=== PATIENT | female | born 2000 | race Two or more races ===

== ENCOUNTER 2024-11-15 03:04 | Emergency (ER) | payer MEDICAID, SELFPAY ==
[2024-11-15 03:06] VITALS: BMI 37.2
--- NOTE | 2024-11-15 03:40 | EDNOTE_ITS ---
<Statement entered by Paula Ocampo MD - 11/15/24 04:03> As co-signing physician, I was present and available for consult prn. I concur with the plan and care as documented by the midlevel provider. Upper Respiratory Inf. RME/HPI General Chief Complaint: Dental/Oral/Throat Stated Complaint: FEVER, THROAT PAIN, PB. EAR PAIN Time Seen by Provider: 11/15/24 03:40 Arrival date/time: 11/15/24 03:04 24F with no significant PMH presents to ED with 2 days of cough, fevers/chills, sore throat, and bilateral ear pain. Limitations: no limitations Related Data Previous Rx's ?Medication ?Instructions ?Recorded ibuprofen 800 mg tablet 800 mg PO TID PRN pain #30 t abs 03/04/24 ondansetron 4 mg disintegrating 4 mg PO Q8H PRN nausea and 03/04/24 tablet vomiting #10 tabs Allergies Allergy/AdvReac Type Severity Reaction Status Date / Time No Known Allergies Allergy Verified 11/15/24 03:05 Review of Systems Review of Systems Systems Reviewed: All systems reviewed, normal except as documented Constitutional Constitutional: Reports system reviewed and no additional complaints, except as documented, Reports as per HPI, Reports chills, Reports fever(s) and Denies headache(s) ENT Ears, Nose, Mouth, and Throat: Reports as per HPI, Denies disequilibrium, Reports otalgia, Denies headache(s) and Reports sore throat Cardiovascular Cardiovascular: Reports system reviewed and no additional complaints, except as documented, Denies chest pain and Denies dyspnea Respiratory Respiratory: Reports system reviewed and no additional complaints, except as documented, Reports as per HPI, Reports cough and Denies dyspnea Gastrointestinal Gastrointestinal: Reports system reviewed and no additional complaints, except as documented, Denies abdominal pain, Denies nausea and Denies vomiting Neurologic Neurologic: Reports system reviewed and no additional complaints, except as documented, Denies confusion, Denies disequilibrium and Denies headache(s) Psychiatric Psychiatric: Denies confusion Past Medical History Past Medical History NEUROLOGIC: Negative Neurological Disorders CARDIAC: Negative Cardiac Disorders or Congestive Heart Failure RESPIRATORY: Negative Chronic Obstructive Pulmonary Disease (COPD) or Asthma GASTROINTESTINAL: Negative Gastrointestinal Disorders GENITOURINARY: Negative Genitourinary Disorders or Renal Disease MUSCULOSKELETAL: Negative Musculoskeletal Disorders ENDOCRINE: Negative Endocrine Disorders, Diabetes Mellitus Type 1 or Diabetes Mellitus Type 2 HEMATOLOGIC: Negative Blood Disorders or Sickle Cell Disease Surgical History SURGICAL: Negative Endocrine Surgery Social History SMOKING STATUS: Never smoker SUBSTANCE USE: marijuana ED Exam General Limitations: Present no limitations General appearance: Present alert and in no apparent distress Head Head exam: Present atraumatic Eye Eye exam: Present normal appearance, PERRL and EOMI ENT ENT exam: Present normal exam, normal oropharynx and mucous membranes moist Neck Neck exam: Present normal inspection, full ROM and trachea midline Chest Chest inspection: Present normal inspection and symmetric chest wall rise Respiratory Respiratory exam: Present normal lung sounds bilaterally Cardiovascular Cardiovascular exam: Present regular rate, normal rhythm and normal heart sounds Abdominal Exam Abdominal exam: Present soft and normal bowel sounds Extremities Exam Extremities exam: Present normal inspection and full ROM Back Exam Back exam: Present normal inspection and full ROM Neurological Exam Neurological exam: Present alert, oriented X3 and CN II-XII intact Psychiatric Psychiatric exam: Present normal affect and normal mood Skin Skin exam: Present warm, dry, intact and normal color Course Quality Measures none Orders Category Date Time Status Bedside Influenza A&B Antigen Test NOW Care 11/15/24 03:47 Active Vital Signs Vital signs: Vital Signs Temperature 99.8 F 11/15/24 03:44 Pulse Rate 111 H 11/15/24 03:44 Respiratory Rate 16 11/15/24 03:44 Blood Pressure 124/84 11/15/24 03:44 Pulse Oximetry (%) 97 11/15/24 03:44 Oxygen Delivery Method Room Air 11/15/24 03:44 O2 at 97% on RA and WNLs Upper Respiratory Infection MDM Narrative MDM Narrative:: 24F with no significant PMH presents to ED with 2 days of cough, fevers/chills, sore throat, and bilateral ear pain. Physical exam reveals clear ENT and lungs. Patient is afebrile, calm, and alert. Flu A+. Patient data External records reviewed:: [facility] previous records Clinical information provided by:: patient Social determinants that could affect healthcare access:: none Patient has the following chronic illnesses:: none How is presenting disease/condition affected by chronic disease/condition?: no chronic disease Evaluation data The following diagnostics were reviewed and interpreted by me:: lab results Lab and/or radiology exams considered but not ordered:: ordered Interpretation Summary: above Medications / Prescriptions Medications or Prescriptions considered but not ordered:: not ordered Medication administrations:: n/a Consultations Consultation(s) initiated? (list below): No Diagnosis Upper Respiratory Differential Diagnosis: upper respiratory infection, croup, otitis media, sinusitis, viral infection, bronchitis, influenza and pharyngitis Most likely diagnosis given after review of the tests above:: flu A Admission Indicated Admission indicated?: not indicated Admission Request Was there a request for admission?: No Disposition Plan Disposition Plan: Discharge Discharge Attestation Discharge Attestation: The patient and all family members were given an opportunity to ask questions and understood the discharge instructions. Discharge instructions specifically effects, indications for sooner follow up or return to the emergency department, and the expected course of current diagnosis. Patient condition: Stable Discharge Plan Plan Patient Disposition: HOME (Self Care) Disposition Comment: Stable Prescriptions/Referrals Prescriptions/Med Rec: No Action ibuprofen 800 mg tablet 800 mg PO TID PRN (Reason: pain) Qty: 30 0RF ondansetron 4 mg tablet,disintegrating 4 mg PO Q8H PRN (Reason: nausea and vomiting) Qty: 10 0RF Referrals: No Primary/Family,Physician [Primary Care Provider] - In 1 week Problem List Clinical Impression: Influenza A Patient/Caregiver Discharge Instructions Education Materials: ED Influenza (Adult) Additional Instructions: Please follow-up with PCP within 24-48 hours and return immediately if symptoms worsen. Ibuprofen/Tylenol can be used simultaneously for greater fever/pain control. Benadryl is good for cough, congestion, and sleep. Print Language: [place] Stand Alone Forms: Patient Portal Info Letter ROSEMARY/ARLETTE Supervising Physician ROSEMARY/ARLETTE Supervising Physician: Dr. Ocampo
[2024-11-15 03:44] VITALS: BP 124/84; PULSE 111; RESP 16; TEMP 37.7; O2SAT 97
[2024-11-15] MEDS: IBUPROFEN TAB 400 MG TABLET 800 MG PO (04:01)
== END 2024-11-15 04:08 | disposition home or self-care (01) ==
PROVIDERS: Emergency Provider Emergency Medicine; PCP Family Medicine
DX: J10.1 Influenza due to other identified influenza virus with other respiratory manifestations (principal)
CPT/HCPCS: 87400; 99283; A9270

== ENCOUNTER 2025-05-12 07:25 | Day surgery (SDC) | payer MEDICAID, SELFPAY ==
[2025-05-11 14:26] VITALS: BMI 37.8
--- NOTE | 2025-05-11 14:46 | EKG_ITS ---
[facility] Test Date: 2025-05-11 Pat Name: KORINA SANTOYO Department: Room: - Gender: Female Policy Services Representative: ERINN : [id number] Requested By: Kishor Monteiro Order Number: [id number] Reading MD: Kishor Monteiro Measurements Intervals [place] Rate: 62 P: 51 DC: 121 QRS: -15 QRSD: 91 T: 26 QT: 374 QTc: 383 Interpretive Statements SINUS RHYTHM POSSIBLE ANTERIOR MYOCARDIAL INFARCTION , PROBABLY OLD [30 ms Q WAVE IN V3/V4, OR R < 0.2 mV IN V4] No previous ECG available for comparison /store/S0/[id number].pdf
[2025-05-11 15:10] LABS: Collection Type, Urine Clean Catch
[2025-05-11 15:41] LABS: Basophils # (Auto) 0.0 Thou/mm3 (0.0-0.2); Basophils % (Auto) 1 % (0-2.5); Eosinophils # (Auto) 0.1 Thou/mm3 (0.0-0.5); Eosinophils % (Auto) 2 % (0-10); Hematocrit 39.4 % (36.0-46.0); Hemoglobin 13.1 g/dL (12.0-16.0); Immature Granulocytes Auto 0.02 Thou/mm3 (0.00-0.00); Lymphocytes # (Auto) 2.4 Thou/mm3 (1.0-4.8); Lymphocytes % (Auto) 36 % (10-50); Mean Corpuscular HGB Conc 33.2 g/dl (31.0-37.0); Mean Corpuscular Hemoglobin 28.2 pg (25.0-35.0); Mean Corpuscular Volume 85 fL (80-100); Monocytes # (Auto) 0.4 Thou/mm3 (0.0-0.8); Monocytes % (Auto) 6 % (0-12); Neutrophils # (Auto) 3.7 Thou/mm3 (1.8-7.7); Neutrophils % (Auto) 55 % (37-80); Nucleated Red Blood Cell # 0.00 Thou/mm3 (0.00-0.00); Nucleated Red Blood Cell % 0 /100 WBC (0); Platelet Count 266 Thou/mm3 (140-440); RDW Standard Deviation 37.9 fL (36.4-46.3); Red Blood Count 4.64 Miln/mm3 (4.00-5.20); White Blood Count 6.7 Thou/mm3 (3.6-11.0)
[2025-05-11 15:49] LABS: Alanine Aminotransferase 41 U/L (10-49); Albumin, Serum 4.7 gm/dL (3.5-5.0); Albumin/Globulin Ratio 2.1 (1.2-2.2); Alkaline Phosphatase 61 U/L (46-116); Anion Gap 9 (7-16); Aspartate Amino Transferase 29 U/L (0-34); BUN/Creatinine Ratio 17 Ratio (12-20); Bilirubin,Total 0.5 mg/dL (0.3-1.2); Blood Urea Nitrogen 10 mg/dL (9-23); Calcium 10.3 mg/dL (8.3-10.6); Calcium (Corrected) 10.3 mg/dL (8.5-10.1); Carbon Dioxide 27.9 mMol/L (20.0-31.0); Chloride 104 mMol/L (98-107); Creatinine (Component) 0.6 mg/dL (0.6-1.3); Estimated Creatinine Clearance 164.6 mL/min (>60); Globulin 2.2 gm/dL (2.3-3.5); Glucose 83 mg/dL (74-106); Osmolality,Calculated 279 (275-295); Potassium 3.8 mMol/L (3.4-5.1); Sodium 141 mMol/L (136-145); Total Protein 6.9 gm/dL (5.7-8.2); eGFR > 60 See Note
[2025-05-11 15:50] LABS: HCG Qualitative,Urine Negative
[2025-05-11 15:50] LABS: Partial Thromboplastin Time 26.9 Seconds (22.0-36.0)
[2025-05-11 18:34] LABS: Bilirubin,Urine Negative (Negative); Blood,Urine Negative (Negative); Clarity,Urine Clear (Clear/Hazy); Color,Urine Yellow (Lt Yel-Yel); Glucose, Urine Negative (Negative); Ketones,Urine Negative (Negative); Leukocyte Esterase,Urine Negative (Negative); Nitrite,Urine Negative (Negative); PH,Urine 7.5 (5.0-7.0); Protein,Urine Negative (Neg - Trace); RBC,Urine 3 /hpf (0-3); Specific Gravity,Urine 1.028 (1.001-1.035); Squamous Epithelial Cell,Urine < 1 /hpf (0-5); Urobilinogen,Urine Negative mg/dL (0.0-1.0); WBC,Urine 2 /hpf (0-5)
[2025-05-12] VITALS (8 sets, daily range): BP systolic 102–125; BP diastolic 66–84; PULSE 78–95; RESP 16–20; TEMP 36.1–36.7; O2SAT 97–100; BMI 38.5
--- NOTE | 2025-05-12 08:20 | CHAP ---
Patient was very nervous. I gave comfort and encouragement and then prayed with her.
--- NOTE | 2025-05-12 12:12 | SUR.PHASEI ---
1212 Patient arrived to recovery resting comfortably in [facility], drowsy and talking with staff, on oxygen 10L via oxy mask, breathing unlabored, vital signs stable, denies pain, dressing intact to abdomen; steri-strips, gauze, band-aids, no bleeding noted, denies nausea, report received from Sanjiv WHITT and Dr. Chopra
--- NOTE | 2025-05-12 12:19 | PD.SUROPNT ---
Date of Procedure 05/12/25 Pre Op Diagnosis Cholecystitis cholelithiasis Post Op Diagnosis Same. Procedure Laparoscopic cholecystectomy on 05/12/2025 Findings This patient had a distended gallbladder with multiple stones and acute inflammation around the gallbladder. Procedure Description In the preop area the procedure was discussed with the patient including risks benefits and alternatives. The risks include possible laparotomy, bleeding, infection bile duct injury and bile leak. Patient may require ERCP for retained stone or a bile leak. The anesthesia risks are to be explained to the patient by the anesthesiologist. Informed consent was obtained. The patient was positioned supine on the operating table and general anesthesia was administered in a satisfactory manner by the anesthesiologist. A timeout procedure was carried out. The patient is positioned in the reverse Trendelenburg position with the right side up. Orogastric tube is introduced into the stomach to decompress the stomach. Prophylactic antibiotics were given in timely manner. Antiembolism measures were taken. The abdomen chest and groin regions were prepped and draped in usual manner. A supraumbilical vertical incision was made and deepened through the layers of abdominal wall and open laparoscopic procedure is carried out. The balloon catheter was introduced and pneumoperitoneum is achieved. A 30? scope was used. Under direct vision right subxiphoid, midclavicular and anterior axillary line trochars were introduced. The gallbladder is then lifted up and a laparoscopic lysis of adhesions was carried out. The gallbladder is freed from the adhesions and the shaan hepatis is exposed. The triangle of Calot is gently dissected and the artery to cystic duct is divided with harmonic ultrasonic mikael. There is a significant amount of scar chronic scar tissue in the shaan hepatis that made the dissection and procedures much slower. The posterior view of safety was achieved. The cystic artery and cystic duct are identified individually and they were ligated close to the gallbladder with hemoclips. There was an accessory cystic artery as well as multiple branches of the cystic artery proper. They were all individually controlled and divided. The cystic artery and the cystic duct are divided between the hemoclips close to the gallbladder. Care was taken to avoid tenting of the common duct. There is a significant length of cystic duct stump towards the common bile duct. The gallbladder is dissected and lifted from the liver bed using harmonic ultrasonic mikael. The gallbladder bed hemostasis is achieved. The gallbladder is retrieved out of the peritoneal cavity in a specimen bag. The balloon cannula is reintroduced and pneumoperitoneum is reestablished. The peritoneal cavity is thoroughly irrigated with sterile saline solution and hemostasis again ascertained. All the cannulas are removed under direct vision there is no bleeding from the cannula sites. The linea alba repair is carried out with the 0 Vicryl continuous suture. The subcutaneous tissues approximated by a 3-0 chromic and skin by 4-0 monocril subcuticular stitch. For the rest of the trocar site incisions are closed in 2 layers with a 3-0 chromic and 4-0 monocril subcuticular stitch. Steri-Strips are applied. Sterile dressings are applied. Complications none. Patient is transferred to the recovery room in a satisfactory condition. Anesthesia GETA Drains None. Implants None. Pathology / specimen Other (Gallbladder with contents) Estimated Blood Loss 5 Condition Stable Disposition PACU Surgeon Kishor Monteiro MD Surgical Staff Operation Date: 05/12/25 07:30 <No data on this case meets the specified criteria> Anesthesiologist Dr. Chopra Claims Manager [place] Day ultrasound technologist sonographer, with a surgical technology student Sanjiv WHITT geological engineering teacher
[2025-05-12] MEDS: fentaNYL CIT INJ 50 mCg/ML AMP 2ML 25 MCG IVP (12:33)
--- NOTE | 2025-05-12 13:15 | SUR.PHASEII ---
1315 patient disconnected from the vital signs monitor, will dress into her clothing and await for her father to arrive
--- NOTE | 2025-05-12 14:00 | SUR.PHASEII ---
1400 Patient meets discharge criteria from recovery, awake and alert, breathing unlabored, vital signs stable, per patient her pain is tolerable, dressing intact; no bleeding noted, drinking 7up; denies nausea, assisted with dressing into her clothing by this instructional writer, discharge instructions given to patient and patients father, father signed discharge instructions. Patient given all her belongings prior to discharge, transported via wheelchair and left in a private vehicle.
== END 2025-05-12 14:00 | disposition home or self-care (01) ==
PROVIDERS: PCP Family Medicine; Referring Provider Specialist; Visit Provider Specialist
PROC: 0FT44ZZ Resection of Gallbladder, Percutaneous Endoscopic Approach (ICD-10-PCS; CPT 47562; principal; 2025-05-12 07:30)
DX: K80.10 Calculus of gallbladder with chronic cholecystitis without obstruction (principal); Z01.810 Encounter for preprocedural cardiovascular examination
CPT/HCPCS: 47562; 36415; 80053; 81001; 81025; 85025; 85730; 93005; A4217; A4649; J0131; J0690; J0694; J1100; J1885; J2250; J2405; J2704; J3010; J3490